=== PATIENT | female | born 1980 | race Caucasian/White ===

== ENCOUNTER 2017-11-25 17:27 | Inpatient (IN) | payer OTHER ==
[~2017-11-25] VITALS: Ht 160 cm; Wt 95.5 kg
[~2017-11-25 17:27] MED LIST: B-COCAP2 PO; EFF50 PO; ETONMIS VAGRING; KLN/5 PO; ZOLP5TAB PO
[2017-11-25] MEDS ORDERED: SODIUM CHLORIDE 0.9% 1000ML 1,000 ML IV STA (17:47)
[2017-11-25] MEDS ORDERED: ONDANSETRON INJ 2 MG/ML 2 ML VIAL IV STA (17:47)
--- NOTE | 2017-11-25 18:14 | EMERGENCY ROOM VISIT NOTE ---
History Report prepared by Jude: Frankie Napier Under the Supervision of: Dr. Flynn Gruber D.O. First contact with patient: 17:43 Chief Complaint: ABDOMINAL PAIN Stated Complaint: STOMACH PAIN History of Present Illness The patient is a 36 year old female who presents to the Emergency Room with complaints of abdominal pain. Patient states she had abdominal pain which began earlier today. She states the pain is diffuse. She denies having any chest pain shortness of breath. She denies having any fever nausea vomiting or diarrhea. She denies having any lower extremity pain. She did not take any pain medication for this. She states the pain is worsened with any movement. She states food has not affected the pain. The patient has not been seen for this pain recently but was seen at an outside emergency department outside of [place] approximately 6 months ago. She was told that she had a hernia but was not referred to a surgeon at that time. She does not have a local primary care physician at this time. Source of History: patient Onset: Today Position: abdomen Quality: other ("diffuse") Modifying Factors (Worsening): movement Modifying Factors (Relieving): other (None) Associated Symptoms: No fevers, No chest pain, No SOB, No nausea, No vomiting, No diarrhea Note: Negative LE pain Review of Systems See HPI for pertinent positives & negatives. A total of 10 systems reviewed and were otherwise negative. Past Medical & Surgical Medical Problems: (1) Depressive Disorder Nec (2) Pilonidal Cyst W/O Absc (3) Suicidal Ideation (4) Suicide-Analgesics (5) Umbilical hernia, incarcerated Family History Cancer Diabetes mellitus Gallbladder disease Hypertension Kidney disease Seizures Social History Smoking Status: Current Some Day Smoker Alcohol Use: none Drug Use: none Marital Status: single Occupation Status: employed Current/Historical Medications Scheduled Bupropion Hcl (Bupropion Hcl Xl), 300 TAB PO DAILY Gabapentin (Neurontin), 800 MG PO Q6 Lorazepam (Ativan), 0.5 MG PO PRN UD Venlafaxine Hcl (Venlafaxine Hcl Er), 300 MG PO QPM Allergies Coded Allergies: Amoxicillin (Verified Allergy, Severe, RASH, 11/25/17) Estrogens (Verified Allergy, Unknown, 04/28/11) Physical Exam Vital Signs Date Time Temp Pulse Resp B/P (MAP) Pulse Ox O2 Delivery O2 Flow Rate FiO2 11/25/17 19:37 77 18 128/95 100 Room Air 11/25/17 18:22 82 11/25/17 18:03 100 Room Air 11/25/17 18:03 100 Room Air 11/25/17 17:34 36.5 92 20 101/69 100 Room Air Physical Exam GENERAL: Patient is awake and alert. She is very anxious appearing and uncomfortable. EYES: The conjunctivae are clear. The pupils are round and reactive. EARS, NOSE, MOUTH AND THROAT: The nose is without any evidence of any deformity. Mucous membranes are moist tongue is midline NECK: The neck is nontender and supple. RESPIRATORY: Normal respiratory effort is noted there is no evidence of wheezing rhonchi or rales CARDIOVASCULAR: Regular rate and rhythm noted there no murmurs rubs or gallops normal S1 normal S2 GASTROINTESTINAL: Exam is very difficult due to the degree of pain. Abdomen is moderately distended and diffusely tender. There is diffuse guarding noted to palpation. There was a supraumbilical hernia which was reduced on palpation. BACK: No midline tenderness or or step-off noted range of motion in flexion extension as well as rotation no signs of muscle spasm noted MUSCULOSKELETAL/EXTREMITIES: There is no evidence of gross deformity full range of motion is noted in the hips and shoulders SKIN: There is no obvious evidence of any rash. There are no petechiae, pallor or cyanosis noted. NEUROLOGIC: Patient is awake alert and oriented x3. Medical Decision & Procedures ER Provider Diagnostic Interpretation: Radiology results as stated below per my review and radiologist interpretation: ABDOMEN AND PELVIS CT WITH IV CONTRAST CT DOSE: 612.38 mGy.cm HISTORY: Acute generalized abdominal pain pain TECHNIQUE: Multiaxial CT images of the abdomen and pelvis were performed following the use of intravenous contrast. A dose lowering technique was utilized adhering to the principles of ALARA. COMPARISON STUDY: CTA of the chest 04/28/2011, right upper quadrant ultrasound 02/07/2011 FINDINGS: Imaged lung bases appear generally clear. No pneumatosis or pneumoperitoneum. Imaged inferior cardiac chambers are unremarkable. Coarse calcification noted within the left epicardial fat pad. Gallbladder is mildly contracted. The liver appears to be within normal limits. No intrahepatic biliary ductal dilation. Spleen, pancreas and adrenal glands are unremarkable. Cyst of the inferior pole left kidney measures 2.1 cm. The kidneys are otherwise unremarkable without renal calculi or obstructive uropathy. The ureters, bladder, uterus and adnexa also appear to be within normal limits. Phleboliths of the pelvis are noted. Patent portal vein. Aorta and IVC are within normal limits. There are no pathologically enlarged lymph nodes identified. There is mild gastric distention. There are multiple fluid-filled loops of prominent and mildly dilated small bowel measuring up to 3.0 cm transversely throughout the abdomen and pelvis. Periumbilical hernia with diastases 2.5 cm contains mesenteric fat, small amount of free fluid and a loop of fluid-filled prominent small bowel. There is a transition point on image 240 series 3 within the bowel exiting the hernia sac. Collapsed small bowel seen distally to this area. The terminal ileum is collapsed. The appendix appears normal. Air is noted within the large bowel which is mildly decompressed. No ascites or mesenteric inflammatory changes. The bones appear to be intact. IMPRESSION: 1. Moderate-sized periumbilical hernia contains mesenteric fat, small amount of free fluid and a fluid filled loop of ileum with focal transition point with a collapsed loop of ileum exiting the hernia sac. Multiple prominent and mildly dilated loops of fluid-filled small bowel are seen proximally with constellation of findings suggesting developing small bowel obstruction secondary to incarcerated hernia. 2. No pneumatosis, pneumoperitoneum or significant mesenteric inflammatory changes. 3. Normal appendix. Electronically signed by: Kofi Issa M.D. 11/25/2017 7:08 PM Laboratory Results 11/25/17 18:15 Red Blood Count 3.88, Mean Corpuscular Volume 97.4, Mean Corpuscular Hemoglobin 33.0, Mean Corpuscular Hemoglobin Concent 33.9, Mean Platelet Volume 9.9, Neutrophils (%) (Auto) 54.7, Lymphocytes (%) (Auto) 36.6, Monocytes (%) (Auto) 4.5, Eosinophils (%) (Auto) 3.7, Basophils (%) (Auto) 0.3, Neutrophils # (Auto) 6.42, Lymphocytes # (Auto) 4.29, Monocytes # (Auto) 0.53, Eosinophils # (Auto) 0.43, Basophils # (Auto) 0.03 11/25/17 18:15 Test 11/25/17 18:15 11/25/17 18:17 11/25/17 19:18 White Blood Count 11.72 K/uL (4.8-10.8) Red Blood Count 3.88 M/uL (4.2-5.4) Hemoglobin 12.8 g/dL (12.0-16.0) Hematocrit 37.8 % (37-47) Mean Corpuscular Volume 97.4 fL (80-100) Mean Corpuscular Hemoglobin 33.0 pg (25-34) Mean Corpuscular Hemoglobin Concent 33.9 g/dl (32-36) Platelet Count 351 K/uL (130-400) Mean Platelet Volume 9.9 fL (7.4-10.4) Neutrophils (%) (Auto) 54.7 % Lymphocytes (%) (Auto) 36.6 % Monocytes (%) (Auto) 4.5 % Eosinophils (%) (Auto) 3.7 % Basophils (%) (Auto) 0.3 % Neutrophils # (Auto) 6.42 K/uL (1.4-6.5) Lymphocytes # (Auto) 4.29 K/uL (1.2-3.4) Monocytes # (Auto) 0.53 K/uL (0.11-0.59) Eosinophils # (Auto) 0.43 K/uL (0-0.5) Basophils # (Auto) 0.03 K/uL (0-0.2) RDW Standard Deviation 46.3 fL (36.4-46.3) RDW Coefficient of Variation 13.1 % (11.5-14.5) Immature Granulocyte % (Auto) 0.2 % Immature Granulocyte # (Auto) 0.02 K/uL (0.00-0.02) Estimated GFR () 117.8 Estimated GFR (Non- 101.6 BUN/Creatinine Ratio 11.4 (10-20) Calcium Level 9.4 mg/dl (8.5-10.1) Magnesium Level 2.1 mg/dl (1.8-2.4) Total Bilirubin 0.2 mg/dl (0.2-1) Direct Bilirubin < 0.1 mg/dl (0-0.2) Aspartate Amino Transf (AST/SGOT) 14 U/L (15-37) Alanine Aminotransferase (ALT/SGPT) 20 U/L (12-78) Alkaline Phosphatase 64 U/L (45-117) Total Protein 7.7 gm/dl (6.4-8.2) Albumin 3.8 gm/dl (3.4-5.0) Lipase 407 U/L (73-393) Human Chorionic Gonadotropin, Qual NEG (NEG) Bedside Hemoglobin 12.9 g/dl (12.0-16.0) Bedside Hematocrit 38 % (37-47) Bedside Sodium 142 mEq/L (135-144) Bedside Potassium 3.2 mEq/L (3.3-5.0) Bedside Chloride 106 mEq/L (101-112) Bedside Total CO2 21 mEq/l (24-31) Anion Gap 19.0 mmol/L (16-25) Bedside Blood Urea Nitrogen 8 mg/dl (7-18) Bedside Creatinine 0.6 mg/dl (0.6-1.3) Bedside Glucose (other) 115 mg/dl (70-99) Bedside Ionized Calcium (Sherlyn) 1.09 mmol/l (1.12-1.32) Urine Color YELLOW Urine Appearance CLEAR (CLEAR) Urine pH 8.5 (4.5-7.5) Urine Specific [place] > 1.045 (1.000-1.030) Urine Protein NEG (NEG) Urine Glucose (UA) NEG (NEG) Urine Ketones NEG (NEG) Urine Occult Blood NEG (NEG) Urine Nitrite NEG (NEG) Urine Bilirubin NEG (NEG) Urine Urobilinogen NEG (NEG) Urine Leukocyte Esterase NEG (NEG) Urine Opiates Screen POS (NEG) Urine Methadone, Qualitative NEG (NEG) Urine Barbiturates NEG (NEG) Urine Phencyclidine (PCP) Level NEG (NEG) Ur Amphetamine/Methamphetamine NEG (NEG) MDMA (Ecstasy) Screen POS (NEG) Urine Benzodiazepines Screen NEG (NEG) Urine Cocaine Metabolite NEG (NEG) Urine Marijuana (THC) NEG (NEG) Laboratory results per my review. Medications Administered Medications (Trade) Dose Ordered Sig/Esa Route Start Time Stop Time Status Last Admin Dose Admin Ondansetron HCl (Zofran Inj) 4 mg NOW STAT IV 11/25/17 17:47 11/25/17 17:49 DC 11/25/17 18:17 4 MG Sodium Chloride 1,000 ml @ 999 mls/hr Q1H1M STAT IV 11/25/17 17:47 11/25/17 18:47 DC 11/25/17 18:17 999 MLS/HR Morphine Sulfate (MoRPHine SULFATE INJ) 4 mg Q15M PRN IV 11/25/17 18:00 12/09/17 17:59 11/25/17 19:41 4 MG Hydromorphone HCl (Dilaudid Inj) 1 mg NOW ONCE IV 11/25/17 20:15 11/25/17 20:16 DC 11/25/17 20:22 1 MG Sodium Chloride 1,000 ml @ 100 mls/hr Q10H IV 11/25/17 21:15 12/25/17 21:14 11/26/17 00:13 100 MLS/HR Acetaminophen 100 ml @ 400 mls/hr Q8H PRN IV 11/25/17 21:15 12/25/17 21:14 11/26/17 00:50 400 MLS/HR Hydromorphone HCl (Dilaudid Inj) 1 mg Q3HWA PRN IV 11/25/17 21:15 12/09/17 21:14 11/26/17 00:10 1 MG Nicotine (Nicoderm Cq 14MG Patch) 1 patch 2114 ONCE TD 11/25/17 21:15 11/25/17 21:34 DC 11/25/17 21:15 1 PATCH ED Course 1744: The patient was evaluated in room A10. A complete history and physical examination were performed. 7: NSS 1,000 ml @ 999 mls/hr IV and Zofran Inj 4mg IV 1800: Morphine Sulfate 4mg IV 1815: Ioversol 111ml IV 2: I reevaluated the patient and updated her on her findings. 2157: Upon reevaluation, the patient will be reevaluated. I discussed results and treatment plan with her. She verbalizes agreement and understanding. I spoke with Eusebio Koo PA-C of [facility]. The patient will be evaluated for further management and care. Medical Decision Prior records/ancillary studies reviewed. Triage Nursing notes reviewed. Additional history obtained from the patient's mother. The patient's history was concerning for abdominal pain. Differential diagnosis: Etiologies such as appendicitis, diverticulitis, PUD, biliary pathology, UTI, pancreatitis, obstruction, mesenteric ischemia, aortic pathology, infections, inflammatory bowel disease, renal colic, as well as others were entertained. The patient is a 36-year-old female who presented to the emergency department with diffuse abdominal pain. She had abdominal distention but did not have vomiting. She was seen at an emergency department outside of [place] sometime ago for similar complaints. At that time she was told she had a hernia but was unsure where the hernia was. She was very tender initially and I could not do a proper abdominal exam but after she was treated with pain medication she was found to have a supra umbilical hernia. This did appear to reduce with significant pain to the patient but she continued to have very severe pain. I discussed patient's laboratory and radiographic studies with her. She was treated with IV fluids IV pain medicine and IV anti-emetics. On subsequent reevaluation she was only somewhat improved. For this reason I discussed her case with the on-call general surgery department. They have agreed to evaluate the patient in the emergency department for further management and disposition. Medication Reconcilliation Current Medication List: was personally reviewed by me Blood Pressure Screening Patient's blood pressure: Normal blood pressure Blood pressure disposition: Did not require urgent referral Consults Time Called: 2118 Consulting Physician: Eusebio Koo PA-C - [facility] General Surgery Returned Call: 2120 I discussed the patient's case with Eusebio Koo PA-C. The patient will be evaluated for further management. Impression Primary Impression: Ventral hernia Additional Impressions: Small bowel obstruction secondary to ventral hernia Abdominal pain Scribe Attestation The scribe's documentation has been prepared under my direction and personally reviewed by me in its entirety. I confirm that the note above accurately reflects all work, treatment, procedures, and medical decision making performed by me. Departure Information Dispostion Being Evaluated By Surgeon Referrals [facility] (PCP) Forms Call Back Authorization, HOME CARE DOCUMENTATION FORM, IMPORTANT VISIT INFORMATION Patient Instructions My [facility] Problem Qualifiers Primary Impression: Ventral hernia Obstruction and gangrene presence: with obstruction but without gangrene Qualified Codes: K43.6 - Other and unspecified ventral hernia with obstruction , without gangrene Additional Impressions: Abdominal pain Abdominal location: generalized Qualified Codes: R10.84 - Generalized abdominal pain
[2017-11-25] MEDS ORDERED: OPTIRAY 320 IV PRN (18:15)
[2017-11-25] MEDS: MoRPHine SULFATE 4 MG/ML 1 ML CARP\\VIAL IV PRN ×2 (18:18→19:41)
[2017-11-25 18:33] LABS: BASO % 0.3 %; BASO ABS # 0.03 K/uL (0-0.2); EOS % 3.7 %; EOS ABS # 0.43 K/uL (0-0.5); HEMATOCRIT 37.8 % (37-47); HEMOGLOBIN 12.8 g/dL (12.0-16.0); IG# 0.02 K/uL (0.00-0.02); LYMPH % 36.6 %; LYMPH ABS # 4.29 K/uL (1.2-3.4); MEAN CELL VOLUME 97.4 fL (80-100); MEAN CORPUSCULAR HGB CONC 33.9 g/dl (32-36); MEAN PLATELET VOLUME 9.9 fL (7.4-10.4); MONO % 4.5 %; MONO ABS # 0.53 K/uL (0.11-0.59); NEUT % 54.7 %; NEUT ABS # 6.42 K/uL (1.4-6.5); PLATELET COUNT 351 K/uL (130-400); RED CELL DISTRIBUTION WIDTH CV 13.1 % (11.5-14.5); RED CELL DISTRIBUTION WIDTH SD 46.3 fL (36.4-46.3); WHITE BLOOD COUNT 11.72 K/uL (4.8-10.8)
[2017-11-25 18:58] LABS: ALBUMIN 3.8 gm/dl (3.4-5.0); ALKALINE PHOSPHATASE 64 U/L (45-117); ALT/SGPT 20 U/L (12-78); AST/SGOT 14 U/L (15-37); BLOOD UREA NITROGEN 9 mg/dl (7-18); CALCIUM 9.4 mg/dl (8.5-10.1); CARBON DIOXIDE 21 mmol/L (21-32); CREATININE 0.76 mg/dl (0.60-1.20); GLUCOSE 104 mg/dl (70-99); LIPASE 407 U/L (73-393); POTASSIUM 3.1 mmol/L (3.5-5.1); SODIUM 139 mmol/L (136-145); TOTAL PROTEIN 7.7 gm/dl (6.4-8.2)
[2017-11-25 19:08] LABS: ISTAT CREATININE 0.6 mg/dl (0.6-1.3); ISTAT IONIZED CALCIUM 1.09 mmol/l (1.12-1.32); ISTAT POTASSIUM 3.2 mEq/L (3.3-5.0)
--- NOTE | 2017-11-25 19:09 | DIAGNOSTIC IMAGING REPORT ---
ABDOMEN AND PELVIS CT WITH IV CONTRAST CT DOSE: 612.38 mGy.cm HISTORY: Acute generalized abdominal pain pain TECHNIQUE: Multiaxial CT images of the abdomen and pelvis were performed following the use of intravenous contrast. A dose lowering technique was utilized adhering to the principles of ALARA. COMPARISON STUDY: CTA of the chest 04/28/2011, right upper quadrant ultrasound 02/07/2011 FINDINGS: Imaged lung bases appear generally clear. No pneumatosis or pneumoperitoneum. Imaged inferior cardiac chambers are unremarkable. Coarse calcification noted within the left epicardial fat pad. Gallbladder is mildly contracted. The liver appears to be within normal limits. No intrahepatic biliary ductal dilation. Spleen, pancreas and adrenal glands are unremarkable. Cyst of the inferior pole left kidney measures 2.1 cm. The kidneys are otherwise unremarkable without renal calculi or obstructive uropathy. The ureters, bladder, uterus and adnexa also appear to be within normal limits. Phleboliths of the pelvis are noted. Patent portal vein. Aorta and IVC are within normal limits. There are no pathologically enlarged lymph nodes identified. There is mild gastric distention. There are multiple fluid-filled loops of prominent and mildly dilated small bowel measuring up to 3.0 cm transversely throughout the abdomen and pelvis. Periumbilical hernia with diastases 2.5 cm contains mesenteric fat, small amount of free fluid and a loop of fluid-filled prominent small bowel. There is a transition point on image 240 series 3 within the bowel exiting the hernia sac. Collapsed small bowel seen distally to this area. The terminal ileum is collapsed. The appendix appears normal. Air is noted within the large bowel which is mildly decompressed. No ascites or mesenteric inflammatory changes. The bones appear to be intact. IMPRESSION: 1. Moderate-sized periumbilical hernia contains mesenteric fat, small amount of free fluid and a fluid filled loop of ileum with focal transition point with a collapsed loop of ileum exiting the hernia sac. Multiple prominent and mildly dilated loops of fluid-filled small bowel are seen proximally with constellation of findings suggesting developing small bowel obstruction secondary to incarcerated hernia. 2. No pneumatosis, pneumoperitoneum or significant mesenteric inflammatory changes. 3. Normal appendix. Electronically signed by: Kofi Issa M.D. 11/25/2017 7:08 PM Dictated Date/Time: 11/25/2017 6:58 PM
[2017-11-25] MEDS ORDERED: GABA400C PO (19:49)
[2017-11-25] MEDS ORDERED: BUPR150T5 PO (19:49)
[2017-11-25] MEDS ORDERED: VENL150T33 PO (19:54)
[2017-11-25] MEDS ORDERED: LORA-741 PO (19:54)
[2017-11-25] MEDS ORDERED: HYDROmorphone INJ 1 MG/ML SYR IV ONE (20:15)
[2017-11-25] MEDS ORDERED: HYDROmorphone INJ 0.5 MG/0.5 ML SYR IV PRN (21:15)
[2017-11-25] MEDS ORDERED: NICOTINE 14 MG/24 HR TDSY TD ONE (21:15)
--- NOTE | 2017-11-25 21:26 | Surgery Consultation ---
Consultation Date of Consultation: Nov 25, 2017. Attending Physician: Reason for Consultation: Abdominal pain History of Present Illness Patient is a 36F w/ PMHx Depression and reported SVT who presented tonight with abdominal pain beginning earlier today. Reports her pain is generalized and she feels bloated. Reports her pain is worse with movement and that she has to lay still. She did not take any pain medication for this prior to arrival. Reports she has a known hernia since last winter and has been seen in the ED twice for this. She reports both times she was told she had some fat stuck up in the hernia and was sent home. She denies ever being instructed to follow-up with a surgeon for this. Denies fever, chills, recent illness, nausea, vomiting. Reports her last BM was yesterday which was small. Denies blood in stool. Urinating without issue. Denies history of previous surgeries in the past. Denies use of blood thinning or anticoagulant medications. WBC 11.72, afebrile. Vitals Stable. CT shows a moderate-sized periumbilical hernia contains mesenteric fat, small amount of free fluid and a fluid filled loop of ileum with focal transition point with a collapsed loop of ileum exiting the hernia sac. Multiple prominent and mildly dilated loops of fluid-filled small bowel are seen proximally with constellation of findings suggesting developing small bowel obstruction secondary to incarcerated hernia. No pneumatosis, pneumoperitoneum or significant mesenteric inflammatory changes. Normal appendix. Social History Smoking Status: Current Some Day Smoker Drug Use: none Marital Status: single Occupation Status: employed Allergies Coded Allergies: Amoxicillin (Verified Allergy, Severe, RASH, 11/25/17) Estrogens (Verified Allergy, Unknown, 04/28/11) Home Medications Scheduled Bupropion Hcl (Bupropion Hcl Xl), 300 TAB PO DAILY Gabapentin (Neurontin), 800 MG PO Q6 Lorazepam (Ativan), 0.5 MG PO PRN UD Venlafaxine Hcl (Venlafaxine Hcl Er), 300 MG PO QPM Current Inpatient Medications Current Inpatient Medications Medications (Trade) Dose Ordered Sig/Esa Route Start Time Stop Time Status Last Admin Dose Admin Morphine Sulfate (MoRPHine SULFATE INJ) 4 mg Q15M PRN IV 11/25/17 18:00 12/09/17 17:59 11/25/17 19:41 4 MG Ioversol (Optiray 320) 111 ml UD PRN IV 11/25/17 18:15 11/29/17 18:14 Hydromorphone HCl (Dilaudid Inj) 1 mg NOW ONCE IV 11/25/17 20:15 11/25/17 20:16 Review of Systems Constitutional: No fever, No chills Respiratory: No shortness of breath Cardiovascular: No chest pain Abdomen: + pain (generalized), No nausea, No vomiting, No diarrhea, No constipation Genitourinary - Female: No dysuria, No hematuria Integumentary: No new/changing skin lesions, No color change Physical Exam Date Time Temp Pulse Resp B/P (MAP) Pulse Ox O2 Delivery O2 Flow Rate FiO2 11/25/17 19:37 77 18 128/95 100 Room Air 11/25/17 18:22 82 11/25/17 18:03 100 Room Air 11/25/17 18:03 100 Room Air 11/25/17 17:34 36.5 92 20 101/69 100 Room Air General Appearance: WD/WN, + obese Head: normocephalic, atraumatic ENT: hearing grossly normal Respiratory/Chest: no respiratory distress Abdomen/GI: soft, no organomegaly, no pulsatile mass, + tenderness (Moderate- severe periumbilical TTP) Neurologic/Psych: alert, normal mood/affect, oriented x 3 Laboratory Results Last 24 Hours Test 11/25/17 18:15 11/25/17 18:17 11/25/17 19:18 White Blood Count 11.72 K/uL Red Blood Count 3.88 M/uL Hemoglobin 12.8 g/dL Hematocrit 37.8 % Mean Corpuscular Volume 97.4 fL Mean Corpuscular Hemoglobin 33.0 pg Mean Corpuscular Hemoglobin Concent 33.9 g/dl Platelet Count 351 K/uL Mean Platelet Volume 9.9 fL Neutrophils (%) (Auto) 54.7 % Lymphocytes (%) (Auto) 36.6 % Monocytes (%) (Auto) 4.5 % Eosinophils (%) (Auto) 3.7 % Basophils (%) (Auto) 0.3 % Neutrophils # (Auto) 6.42 K/uL Lymphocytes # (Auto) 4.29 K/uL Monocytes # (Auto) 0.53 K/uL Eosinophils # (Auto) 0.43 K/uL Basophils # (Auto) 0.03 K/uL RDW Standard Deviation 46.3 fL RDW Coefficient of Variation 13.1 % Immature Granulocyte % (Auto) 0.2 % Immature Granulocyte # (Auto) 0.02 K/uL Sodium Level 139 mmol/L Potassium Level 3.1 mmol/L Chloride Level 107 mmol/L Carbon Dioxide Level 21 mmol/L Anion Gap 11.0 mmol/L 19.0 mmol/L Blood Urea Nitrogen 9 mg/dl Creatinine 0.76 mg/dl Estimated GFR () 117.8 Estimated GFR (Non- 101.6 BUN/Creatinine Ratio 11.4 Random Glucose 104 mg/dl Calcium Level 9.4 mg/dl Magnesium Level 2.1 mg/dl Total Bilirubin 0.2 mg/dl Direct Bilirubin < 0.1 mg/dl Aspartate Amino Transf (AST/SGOT) 14 U/L Alanine Aminotransferase (ALT/SGPT) 20 U/L Alkaline Phosphatase 64 U/L Total Protein 7.7 gm/dl Albumin 3.8 gm/dl Lipase 407 U/L Human Chorionic Gonadotropin, Qual NEG Bedside Hemoglobin 12.9 g/dl Bedside Hematocrit 38 % Bedside Sodium 142 mEq/L Bedside Potassium 3.2 mEq/L Bedside Chloride 106 mEq/L Bedside Total CO2 21 mEq/l Bedside Blood Urea Nitrogen 8 mg/dl Bedside Creatinine 0.6 mg/dl Bedside Glucose (other) 115 mg/dl Bedside Ionized Calcium (Sherlyn) 1.09 mmol/l Urine Color YELLOW Urine Appearance CLEAR Urine pH 8.5 Urine Specific [place] > 1.045 Urine Protein NEG Urine Glucose (UA) NEG Urine Ketones NEG Urine Occult Blood NEG Urine Nitrite NEG Urine Bilirubin NEG Urine Urobilinogen NEG Urine Leukocyte Esterase NEG Urine Opiates Screen POS Urine Methadone, Qualitative NEG Urine Barbiturates NEG Urine Phencyclidine (PCP) Level NEG Ur Amphetamine/Methamphetamine NEG MDMA (Ecstasy) Screen POS Urine Benzodiazepines Screen NEG Urine Cocaine Metabolite NEG Urine Marijuana (THC) NEG Assessment & Plan Incarcerated umbilical hernia Hernia reduced at bedside, no N/V at this time. Pain controlled. afebrile. vitals stable. Plan for open umbilical hernia repair with mesh in OR tomorrow with Dr. Gonzalez. Risks, benefits, alternatives were discussed with patient and mother- questions answered. Admit med/surg, clears, NPO after midnight, IVF, pain medication prn, antiemetics prn, SCDs. OR notified. Patient seen and examined with Dr. Gonzalez. Please contact with questions or concerns.
--- NOTE | 2017-11-25 23:21 | Progress Note ---
Progress Note Date of Service Nov 25, 2017. Progress Note Patient being admitted for incarcerated umbilical hernia containing small bowel with obstruction that was reduced at the bedside with plans on repair in the morning. The patient repeatedly requested to leave the room and go outside to smoke or make phone calls. At one point she left without notifying anyone and came back in. She then became agitated and felt that she was being disrespected by one of the nursing staff. I did not see this during my encounters. She then said she was going to leave, and we informed her that it was our recommendation that she stay and proceed with an operation in the morning. She was warned of the risks she were to the part to include recurrent incarceration, small bowel obstruction, strangulation and life-threatening infection. We also informed her that if she left she would be leaving AGAINST MEDICAL ADVICE. The patient was very tearful, and stated that she desired to stay overnight with plans for surgery tomorrow. I informed her that she would not be allowed to exit the building to smoke, make phone calls, or for any other reason. She will be provided with a nicotine patch as well as pain medication. Her home meds will be ordered and we will plan to give her Effexor tonight. She was also asked to cease with her foul language and yelling and general disrespect to the staff. The patient expressed understanding and agreed with the plan as stated.
[2017-11-25 23:39] VITALS: BP 146/87; PULSE 87; TEMP 37; O2SAT 96; Ht 160 cm; Wt 95.5 kg
[2017-11-25] MEDS ORDERED: VENLAFAXINE HCL 50 MG TAB PO ONE (23:45)
[2017-11-25] MEDS ORDERED: LORAZEPAM 1 MG TAB PO ONE (23:45)
[2017-11-26] VITALS (8 sets, daily range): BP systolic 108–120; BP diastolic 74–84; PULSE 55–86; TEMP 36.5–36.8; O2SAT 92–100
[2017-11-26] MEDS: HYDROmorphone INJ 0.5 MG/0.5 ML SYR IV PRN ×3 (00:10→09:31)
[2017-11-26] MEDS: SODIUM CHLORIDE 0.9% 1000ML 1,000 ML IV SCH ×3 (00:13→17:15)
[2017-11-26] MEDS: ACETAMINOPHEN IV 100 ML IV PRN ×2 (00:50→12:05)
[2017-11-26] MEDS: ONDANSETRON INJ 2 MG/ML 2 ML VIAL IV PRN ×2 (03:16→09:31)
[2017-11-26] MEDS ORDERED: CEFAZOLIN 2000MG IV PUSH 15 ML IV SCH (06:00)
[2017-11-26] MEDS ORDERED: CEFAZOLIN IV 2,000 MG in DEXTROSE 5% 50ML 50 ML IV SCH (07:00)
[2017-11-26] MEDS ORDERED: NICOTINE 14 MG/24 HR TDSY TD SCH (09:00)
[2017-11-26] MEDS ORDERED: CLINDAMYCIN IV 900 MG in DEXTROSE 5% 50ML 44 ML IV SCH (11:00)
--- NOTE | 2017-11-26 12:01 | Surgery Progress Note ---
Surgery Progress Note Date of Service Nov 26, 2017. Subjective 36 year old female with bowel containing incarcerated hernia, reduced in ED last night. C/O headache, minimal abd pain. Objective Vital Signs: Date Time Temp Pulse Resp B/P (MAP) Pulse Ox O2 Delivery O2 Flow Rate FiO2 11/26/17 08:20 Room Air 11/26/17 07:55 36.5 71 20 108/74 (85) 92 Room Air 11/25/17 23:44 Room Air 11/25/17 23:39 37.0 87 18 146/87 96 Room Air 11/25/17 22:08 36.5 77 18 128/95 100 11/25/17 19:37 77 18 128/95 100 Room Air 11/25/17 18:22 82 11/25/17 18:03 100 Room Air 11/25/17 18:03 100 Room Air 11/25/17 17:34 36.5 92 20 101/69 100 Room Air General Appearance: WD/WN, no apparent distress Abdomen: normal bowel sounds, non tender, non distended, soft, no organomegaly , no pulsatile mass, + hernia (umbilical hernia) Laboratory Results: Results Past 24 Hours Test 11/25/17 18:15 11/25/17 18:17 11/25/17 19:18 Range/Units White Blood Count 11.72 4.8-10.8 K/uL Red Blood Count 3.88 4.2-5.4 M/uL Hemoglobin 12.8 12.0-16.0 g/dL Hematocrit 37.8 37-47 % Mean Corpuscular Volume 97.4 80-100 fL Mean Corpuscular Hemoglobin 33.0 25-34 pg Mean Corpuscular Hemoglobin Concent 33.9 32-36 g/dl Platelet Count 351 130-400 K/uL Mean Platelet Volume 9.9 7.4-10.4 fL Neutrophils (%) (Auto) 54.7 % Lymphocytes (%) (Auto) 36.6 % Monocytes (%) (Auto) 4.5 % Eosinophils (%) (Auto) 3.7 % Basophils (%) (Auto) 0.3 % Neutrophils # (Auto) 6.42 1.4-6.5 K/uL Lymphocytes # (Auto) 4.29 1.2-3.4 K/uL Monocytes # (Auto) 0.53 0.11-0.59 K/uL Eosinophils # (Auto) 0.43 0-0.5 K/uL Basophils # (Auto) 0.03 0-0.2 K/uL RDW Standard Deviation 46.3 36.4-46.3 fL RDW Coefficient of Variation 13.1 11.5-14.5 % Immature Granulocyte % (Auto) 0.2 % Immature Granulocyte # (Auto) 0.02 0.00-0.02 K/uL Sodium Level 139 136-145 mmol/L Potassium Level 3.1 3.5-5.1 mmol/L Chloride Level 107 98-107 mmol/L Carbon Dioxide Level 21 21-32 mmol/L Anion Gap 11.0 19.0 16-25 mmol/L Blood Urea Nitrogen 9 7-18 mg/dl Creatinine 0.76 0.60-1.20 mg/dl Estimated GFR () 117.8 Estimated GFR (Non- 101.6 BUN/Creatinine Ratio 11.4 10-20 Random Glucose 104 70-99 mg/dl Calcium Level 9.4 8.5-10.1 mg/dl Magnesium Level 2.1 1.8-2.4 mg/dl Total Bilirubin 0.2 0.2-1 mg/dl Direct Bilirubin < 0.1 0-0.2 mg/dl Aspartate Amino Transf (AST/SGOT) 14 15-37 U/L Alanine Aminotransferase (ALT/SGPT) 20 12-78 U/L Alkaline Phosphatase 64 45-117 U/L Total Protein 7.7 6.4-8.2 gm/dl Albumin 3.8 3.4-5.0 gm/dl Lipase 407 73-393 U/L Human Chorionic Gonadotropin, Qual NEG NEG Bedside Hemoglobin 12.9 12.0-16.0 g/dl Bedside Hematocrit 38 37-47 % Bedside Sodium 142 135-144 mEq/L Bedside Potassium 3.2 3.3-5.0 mEq/L Bedside Chloride 106 101-112 mEq/L Bedside Total CO2 21 24-31 mEq/l Bedside Blood Urea Nitrogen 8 7-18 mg/dl Bedside Creatinine 0.6 0.6-1.3 mg/dl Bedside Glucose (other) 115 70-99 mg/dl Bedside Ionized Calcium (Sherlyn) 1.09 1.12-1.32 mmol/l Urine Color YELLOW Urine Appearance CLEAR CLEAR Urine pH 8.5 4.5-7.5 Urine Specific [place] > 1.045 1.000-1.030 Urine Protein NEG NEG Urine Glucose (UA) NEG NEG Urine Ketones NEG NEG Urine Occult Blood NEG NEG Urine Nitrite NEG NEG Urine Bilirubin NEG NEG Urine Urobilinogen NEG NEG Urine Leukocyte Esterase NEG NEG Urine Opiates Screen POS NEG Urine Methadone, Qualitative NEG NEG Urine Barbiturates NEG NEG Urine Phencyclidine (PCP) Level NEG NEG Ur Amphetamine/Methamphetamine NEG NEG MDMA (Ecstasy) Screen POS NEG Urine Benzodiazepines Screen NEG NEG Urine Cocaine Metabolite NEG NEG Urine Marijuana (THC) NEG NEG Assessment & Plan incarcerated umbilical hernia with bowel obstruction, reduced plan for open umbilical hernia repair today risks reviewed, consent signed clindamycin pre op poss d/c this afternoon
[2017-11-26] MEDS ORDERED: ONDANSETRON INJ 2 MG/ML 2 ML VIAL ONE ×2 (13:22→14:44)
[2017-11-26] MEDS ORDERED: PROPOFOL IV EMULSION 10 MG/ML 20 ML VIAL ONE (13:22)
[2017-11-26] MEDS ORDERED: NEOSTIGMINE METHYLSULFATE 5 MG/5 ML SYR ONE (13:22)
[2017-11-26] MEDS ORDERED: DEXAMETHASONE SOD INJ 4 MG/ML VIAL ONE (13:22)
[2017-11-26] MEDS ORDERED: GLYCOPYRROLATE INJ 0.2 MG/ML VIAL ONE ×2 (13:22→14:44)
[2017-11-26] MEDS ORDERED: MIDAZOLAM HCL 1 MG/ML 2ML VIAL ONE (13:22)
[2017-11-26] MEDS ORDERED: LIDOCAINE HCL 2% 2 ML VIAL (20MG/ML) ONE (13:22)
[2017-11-26] MEDS ORDERED: HYDROmorphone INJ 2 MG/ML SYR/VIAL ONE (13:23)
[2017-11-26] MEDS ORDERED: LARYING-O-JET KIT (LTA) ONE (13:23)
[2017-11-26] MEDS ORDERED: SODIUM CHLORIDE 0.9% INJ 10 ML VIAL ONE (13:23)
[2017-11-26] MEDS ORDERED: FENTANYL CITRATE INJ 50 MCG/1 ML 2 ML VIAL ONE (13:23)
[2017-11-26] MEDS ORDERED: BUPIVACAINE 0.5 % 5 MG/1 ML PF 10ML VIAL ONE (13:41)
[2017-11-26] MEDS ORDERED: EpHEDrine SULFATE 50MG/5ML SYR ONE (14:45)
[2017-11-26] MEDS ORDERED: ROCURONIUM BROMIDE 10 MG/ML 5 ML VIAL ONE (14:50)
--- NOTE | 2017-11-26 15:10 | [facility] Post Operative Brief Note ---
Immediate Operative Summary Operative Date Nov 26, 2017. Pre-Operative Diagnosis incarcerated umbilical hernia with bowel obstruction, reduced Post-Operative Diagnosis incarcerated umbilical hernia with bowel obstruction, reduced Procedure(s) Performed Open Incarcerated Umbilical Hernia Repair With Mesh Surgeon Dr. Yuliana oGnzalez Industry Segment Specialist Surgeon(s) Robbie Moreno PA-C Estimated Blood Loss 2ML Findings Consistent with Post-Op Diagnosis incarcerated umbilical hernia, 4.3 mesh placed Specimens A: Hernia Sac Drains None Anesthesia Type General Complication(s) none Disposition Accompanied Pt To Recover: no Disposition: Recovery Room / PACU
[2017-11-26] MEDS ORDERED: OXYCODONE/ACETAMINOPHEN 5-325 TAB PO PRN (15:15)
--- NOTE | 2017-11-26 15:15 | [facility] Operative Report ---
Operative Report Operative Date Nov 26, 2017. Pre-Operative Diagnosis incarcerated umbilical hernia with bowel obstruction, reduced Post-Operative Diagnosis same Procedure(s) Performed umbilical hernia repair with mesh, incarcerated Surgeon Dr. Yuliana Gonazlez Software Quality Assurance Engineer Surgeon(s) Robbie Moreno PA-C Estimated Blood Loss 2ML Findings incarcerated umbilical hernia, 4.3 cm mesh placed Specimens A: Hernia Sac Drains none Anesthesia GETA Complication(s) None Disposition Recovery Room / PACU Indications 36-year-old female incarcerated umbilical hernia with small bowel obstruction and was reduced in the emergency department, plan for umbilical hernia repair. The risks of the procedure were discussed, all questions were answered, and the patient agreed to proceed with surgery as planned. Description of Procedure The patient was properly identified, consented, and taken to the operating room where she was placed in the supine position. General endotracheal anesthesia was induced. SCDs and a safety belt were placed. Preoperative antibiotics were administered. The patient's abdomen was prepped and draped in the standard sterile fashion. Surgical timeout was performed and all parties were in agreement that this was the correct patient and procedure to be performed and we continued as planned. A curvilinear infraumbilical incision was made and deepened down to the fascia with blunt dissection. The umbilical stalk was circumferentially dissected with a Tamiko, and divided below the level of the skin. An incarcerated hernia containing preperitoneal fat and omentum. A 2.5 cm fascial defect was encountered. The hernia was reduced. The fascia anteriorly and posteriorly was cleared of investing tissue for several centimeters. Hemostasis was achieved within the wound. A 4.3 cm piece of C-Qur mesh was sown into place with interrupted 0 Nurolon sutures. The wound was irrigated and hemostasis confirmed. The umbilicus was tacked down to the fascia with 3-0 Vicryl sutures. Local anesthetic in the form of 0.5% Marcaine was injected in the fascia and along the skin incision. The skin was closed with interrupted 3-0 Vicryl deep dermal sutures, followed by 4-0 Monocryl running subcuticular suture. Dermabond was placed over the wound. The patient was extubated in the operating room and taken to the PACU where she recovered without apparent incident. All sponge, instrument and needle counts were correct at the conclusion of the procedure. The patient tolerated the procedure well. The physician's quality assistant was present and scrubbed for the entire to the case. He was essential in positioning the patient, prepping and draping, retraction and exposure, reduction of the hernia repair, closure the incisions, placement of the dressings. I attest to the content of the Intraoperative Record and any orders documented therein. Any exceptions are noted below.
[2017-11-26] MEDS ORDERED: OXYC-57 PO ×2 (15:16→15:22)
--- NOTE | 2017-11-26 15:18 | Discharge Instructions ---
Discharge Instructions Date of Service Nov 26, 2017. Admission Reason for Admission: Umbilical Hernia,Incarcerated Discharge Discharge Diagnosis / Problem: repair of hernia Discharge Goals Goal(s): Decrease discomfort Activity Recommendations Activity Limitations: as noted below Lifting Limitations: no more than 10 pounds Shower/Bathe: no limitations Driving or Machine Use: resume 3 days after discharge . Instructions / Follow-Up Instructions / Follow-Up Dr. Gonzalez in 2 weeks, call [phone] to [address] Current Hospital Diet Patient's current hospital diet: Clear Liquid Diet Discharge Diet Recommended Diet: Regular Diet Procedures Procedures Performed: Open Incarcerated Umbilical Hernia Repair With Mesh Pending Studies Studies pending at discharge: no Medical Emergencies . Who to Call and When: Medical Emergencies: If at any time you feel your situation is an emergency, please call 911 immediately. . Non-Emergent Contact Non-Emergency issues call your: Surgeon Call Non-Emergent contact if: you have a fever, temperature is above 101.5, your pain is not controlled, wound has increased drainage, wound has increased redness, wound has increased pain, you have any medication questions . "Provider Documentation" section prepared by Sandip Ramos. . [place] Drug Monitoring Program Search Results: no issues identified
[2017-11-26] MEDS ORDERED: HYDROmorphone INJ 1 MG/ML SYR IV PRN (15:30)
[2017-11-26] MEDS ORDERED: ATROPINE SULFATE 0.1 MG/ML 5ML SYR IV PRN (15:30)
[2017-11-26] MEDS ORDERED: ONDANSETRON INJ 2 MG/ML 2 ML VIAL IV PRN (15:30)
[2017-11-26] MEDS ORDERED: FENTANYL CITRATE INJ 50 MCG/1 ML 2 ML VIAL IV PRN (15:30)
[2017-11-26] MEDS ORDERED: EpHEDrine SULFATE INJ 50 MG/ML AMP IV PRN (15:30)
--- NOTE | 2017-11-26 15:50 | Anesthesiology Progress Note ---
Anesthesia Post Op Note Date & Time Nov 26, 2017 at 15:50 Vital Signs Pain Intensity: 5 Vital Signs Past 12 Hours Date Time Temp Pulse Resp B/P (MAP) Pulse Ox O2 Delivery O2 Flow Rate FiO2 11/26/17 15:45 79 18 104/69 97 Nasal Cannula 3 11/26/17 15:35 85 18 118/78 100 Oxymask 3 11/26/17 15:25 80 18 108/55 100 Oxymask 5 11/26/17 15:15 36.3 80 16 109/72 95 Oxymask 5 11/26/17 12:03 36.6 75 18 119/83 (95) 100 Room Air 11/26/17 11:58 92 Room Air 11/26/17 08:20 Room Air 11/26/17 07:55 36.5 71 20 108/74 (85) 92 Room Air Notes Mental Status: alert / awake / arousable, participated in evaluation Pt Amnestic to Procedure: Yes Nausea / Vomiting: adequately controlled Pain: adequately controlled Airway Patency, RR, SpO2: stable & adequate BP & HR: stable & adequate Hydration State: stable & adequate Anesthetic Complications: no major complications apparent
--- NOTE | 2017-11-28 07:57 | Discharge Summary ---
Discharge Summary Date of Service Nov 28, 2017. Admission Date/Reason Nov 25, 2017 at 21:19 Umbilical Hernia,Incarcerated. Discharge Date/Disposition Nov 26, 2017 Home Diagnosis Principal Diagnosis: incarcerated umbilical hernia with bowel obstruction, reduced Procedure(s) Performed umbilical hernia repair with mesh, incarcerated Medication Reconciliation New Medications: Oxycodone/Acetaminophen 5MG/325MG (Percocet 5MG/325MG) Tab 1-2 TABLETS PO Q4H PRN for Pain, #20 TAB Continued Medications: Bupropion Hcl (Bupropion Hcl Xl) 150 Mg Tab 300 TAB PO DAILY for 30 Days, #9000 TAB TAKE 2, 150MG TABS Gabapentin (Neurontin) 400 Mg Cap 800 MG PO Q6, CAP TAKE 2, 400 MG CAP TO = 800 MG Lorazepam (Ativan) 0.5 Mg Tab 0.5 MG PO PRN UD, TAB Venlafaxine Hcl (Venlafaxine Hcl Er) 150 Mg Tab 300 MG PO QPM for 30 Days, TAB 2 Refills TAKE 2, 150 MG TABS Referrals Follow up Referrals: Surgery Referral - Within 1-2 Weeks with Dale Gonzalez, DO Admission Physical Exam As per Admitting History & Physical. Hospital Course 36 y/o female presented to ED with abdominal pain, history of umbilical hernia. CT showed moderate-sized periumbilical hernia containing mesenteric fat, small amount of free fluid and a fluid filled loop of ileum with focal transition point with a collapsed loop of ileum exiting the hernia sac. This was partially reduced in the ED. She was admitted overnight to the surgery service and hernia repair planned for the morning. She was taken to the OR as planned for hernia repair with mesh and returned to the surgical floor. She was able to tolerate advancing diet and oral analgesics later in the day. She was stable for discharge that evening. Discharge Instructions Please refer to the electronic Patient Visit Report (Discharge Instructions) for additional information.
== END 2017-11-26 18:37 | disposition home or self-care (01) | DRG 355 ==
LOC: C.EDB 17:28 → C.MSW 21:19 → ENRESERV 21:35
PROVIDERS: ADMIT Surgery; ATTEND Surgery
PROC: 0WUF0JZ Supplement Abdominal Wall with Synthetic Substitute, Open Approach (ICD-10-PCS; principal; 2017-11-26 11:45)
DX: K42.0 Umbilical hernia with obstruction, without gangrene (principal); F32.9 Major depressive disorder, single episode, unspecified; F17.200 Nicotine dependence, unspecified, uncomplicated; Z79.899 Other long term (current) drug therapy; Z88.1 Allergy status to other antibiotic agents

== ENCOUNTER → 2017-12-23 | Outpatient (CLI) | payer OTHER ==
[~2017-12-23] MED LIST changes: -B-COCAP2 PO; +BUPR150T5 PO; -EFF50 PO; -ETONMIS VAGRING; +GABA400C PO; -KLN/5 PO; +LORA-741 PO; +OXYC-57 PO; +VENL150T33 PO; -ZOLP5TAB PO
== END | disposition home or self-care (01) ==
LOC: C.LABBFT 13:42
PROVIDERS: ATTEND Physician Assistant Medical
DX: L03.90 Cellulitis, unspecified (principal)